=== PATIENT | female | born 1975 | race Caucasian/White ===

== ENCOUNTER 2020-10-18 09:16 | Day surgery (SDC) | payer OTHER, SELFPAY ==
[~2020-10-18] VITALS: Ht 152.4 cm; Wt 75.7 kg
[2020-10-18] MEDS ORDERED: MEPERIDINE 25 MG/ML SYR ONE (11:30)
[2020-10-18] MEDS ORDERED: fentaNYL citrate 0.05 MG/ML VIAL ONE (11:30)
[2020-10-18] MEDS ORDERED: DEXAMETHASONE 4 MG/ML VIAL ONE (11:30)
[2020-10-18] MEDS ORDERED: ROCURONIUM 50 MG/5 ML VIAL IV ONE (11:30)
[2020-10-18] MEDS ORDERED: SEVOFLURANE 250 ML BTL INH ONE (11:30)
[2020-10-18] MEDS ORDERED: LIDOCAINE 2% 100 MG/5 ML SYR IVP ONE (11:30)
[2020-10-18] MEDS ORDERED: KETOROLAC 30 MG/ML VIAL ONE (11:30)
[2020-10-18] MEDS ORDERED: GLYCOPYRROLATE 0.2 MG/ML VIAL ONE (11:30)
[2020-10-18] MEDS ORDERED: PROPOFOL 200 MG/20 ML VIAL IV ONE (11:30)
[2020-10-18] MEDS ORDERED: fentaNYL citrate 0.05 MG/ML VIAL IVP PRN (12:20)
[2020-10-18] MEDS ORDERED: LACTATED RINGERS 1,000 ML IV SCH (12:20)
[2020-10-18] MEDS ORDERED: ONDANSETRON 4 MG/2 ML VIAL IVP PRN (12:20)
[2020-10-18] MEDS ORDERED: diphenhydrAMINE 50 MG/ML VIAL IVP PRN (12:20)
[2020-10-18] MEDS ORDERED: HYDROcodone/APAP 5/325 MG 1 TAB TAB PO PRN (12:20)
[2020-10-18] MEDS ORDERED: MEPERIDINE 25 MG/ML SYR IVP PRN (12:20)
== END 2020-10-18 13:30 | disposition home or self-care (01) ==
LOC: MMU 09:16 → MDS 09:16 → EDSTATUS 10:33 → MDS 13:30
PROVIDERS: ATTEND Obstetrics & Gynecology
DX: N92.0 Excessive and frequent menstruation with regular cycle (principal); D25.1 Intramural leiomyoma of uterus; Z79.899 Other long term (current) drug therapy; Z20.822 Contact with and (suspected) exposure to COVID-19
CPT/HCPCS: 58563; 81025; J1100; J1885; J2001; J2175; J2704; J3010; J3490; U0003; 88305; J7120